=== PATIENT | male | born 2005 | race Caucasian/White ===

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

== ENCOUNTER 2025-09-29 09:58 | Outpatient (AMB) | payer SELFPAY ==
--- NOTE | 2025-09-29 10:07 | A.OFFPC_ITS ---
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) Intake Note: patient is scheduled to to establish care Economic Adviser Required: No Soap Drier Operator: Present Accompanied by: Life Partner Allergies No Known Allergies Allergy (Verified 09/29/25 10:13) Medication List - Last Reconciled 09/29/25 by Joshua Martin MD albuterol sulfate 90 mcg/actuation (Ventolin HFA) 2 puffs inhalation Q4-6H PRN Arnuity Ellipta 50 mcg/actuation (fluticasone furoate) 1 inh inhalation DAILY NS Tobacco use date assessed: 09/29/25 Dental Screening Dental Screen Date: 09/29/25 Did you have a dental visit in the last 12 months?: Yes Did you have a dental problem in the last 6 months where you did not have access to dental care?: No Was dental information given to patient?: No HPI 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 ?? Prior PCP:? Ariela Maldonado Last office visit/CPE:? > 1 yr Acute issue(s):? Asthma - Controlled ?? PMHx:? Asthma, Eczema, Nut Allergy SurgHx:? None FHx:? Dad: Allergies. Mom: Healthy. SocHx:? Nonsmoker. EtOH. 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 1. Little interest or pleasure in doing things: not at all 2. Feeling down, depressed, or hopeless: not at all 3. Trouble falling or staying asleep, or sleeping too much: not at all 4. Feeling tired or having little energy: not at all 5. Poor appetite or overeating: not at all 6. Feeling bad about yourself - or that you are a failure or have let yourself or your family down: not at all 7. Trouble concentrating on things, such as reading the newspaper or watching television: not at all 8. Moving or speaking so slowly that other people could have noticed. Or the opposite - being so fidgety or restless that you have been moving around a lot more than usual: not at all 9. Thoughts that you would be better off or of hurting yourself in some way: not at all Total score: 0 Depression Screening Interpretation: Negative Depression Screening Done: Yes 86233 - PHQ-9 Billing: Yes Source: Developed by Drs. Jameson Lew, Anyi Rodriguez, Inderjit Fung and colleagues, with an educational amos from [employer] Thrive Questionnaire Date Thrive assessed: 09/29/25 I am a: Parent/Caregiver What is your living situation today?: I have a steady place to live Within the past 12 months, did the food you bought not last and you didn't have the money to get more?: Never true Within the past 12 months, did you worry whether your food would run out before you got money to buy more?: Never true Do you have trouble paying for medicines?: No Do you have trouble getting transportation to medical appointments?: No Do you have trouble paying your heating and electricity bill?: No Do you have trouble taking care of your child, family member or friend?: No Do you have trouble with day-to-day activities such as bathing, preparing meals, shopping, managing finances, etc.?: No Are you currently unemployed and looking for a job?: No Are you interested in more education?: No Please select the resources that you would like help with: None Currently or been in a relationship where the following occur: No concerns reported THRIVE Score: 0 AUDIT C Alcohol Use Questionnaire (AUDIT-C) 1. How often do you have a drink containing alcohol?: Never 3. How often do you have six or more drinks on one occasion?: Never Total Score: 0 Score Reviewed/Action Taken: Yes DANITZA-7 AMB Questionnaire DANITZA-7 Date DANITZA - 7 assessed: 09/29/25 Feeling nervous, anxious, or on edge: 0 = Not at all Not being able to stop or control worryin = Not at all Worrying too much about different things: 0 = Not at all Trouble relaxin = Not at all Being so restless that it is hard to sit still: 0 = Not at all Becoming easily annoyed or irritable: 0 = Not at all Feeling afraid as if something awful might happen: 0 = Not at all Total DANITZA-7 score (0-4 normal; 5-9 mild; 10-14 moderate; 15-21 severe): 0 Source: Developed by Drs. Jameson Lew, Anyi Rodriguez, Inderjit Fung and colleagues, with an educational amos from [employer] DANITZA-7 Assessment Billing DANITZA-7 Assessment Tool: DANITZA-7 Assessment 06553 ACT Questionnaire In the past 4 weeks, how much of the time did your asthma keep you from getting as much done at work, school or at home?: None of the time During the past 4 weeks, how often have you had shortness of breath?: Not at all During the past 4 weeks, how often did your asthma symptoms wake you up at night or earlier than usual in the morning?: Not at all During the past 4 weeks, how often have you had to use your rescue inhaler or nebulizer medication?: Not at all How would you rate your asthma control during the past 4 weeks?: Completely controlled ACT Interpretation: Negative Score: 25 Review of Systems Const Denies chills, Denies fatigue, Denies fever(s), Denies headache(s) and Denies we akness ENT Denies dizziness and Denies headache(s) Card Denies chest pain, Denies lightheadedness, Denies dyspnea and Denies other (Palpitations) Resp Denies cough, Denies dyspnea, Denies wheezing and Denies other ( shortness of breath) Musc Denies numbness and Denies tingling Neuro Denies dizziness, Denies headache(s), Denies numbness, Denies tingling, Denies paresthesias and Denies weakness Psych Denies anxiety and Denies depression Endo Denies fatigue Aller/Immun Denies wheezing Physical exam (Primary Care) Vital Signs: Last Vital Signs Temp 98.2 F 09/29/25 10:17 Pulse 86 09/29/25 10:17 Resp 16 09/29/25 10:17 BP 100/78 09/29/25 10:17 Pulse Ox 97 09/29/25 10:17 Oxygen Delivery Method Room Air 09/29/25 10:17 BMI result Body Mass Index 24.6 Tobacco/Smoking Status: Tobacco use Status Tobacco use date assessed 09/29/25 09/29/25 10:21 Patient Tobacco Use Status Never used Tobacco 09/29/25 10:21 e-Cigarette/Vaping Use Never Used 09/29/25 10:21 PHQ-9: PHQ-9 Score PHQ-9: Total score 0 09/29/25 10:41 Depression Screening Interpretation: Negative Thrive Assessment: Date of Thrive Assessment Date Thrive assessed 09/29/25 09/29/25 10:21 Currently or been in a relationship where the following occur: No concerns reported Const General: no acute distress and well developed Nutritional Appearance: well nourished Orientation/consciousness: patient oriented x3 HENMT Head: Yes normocephalic and Yes atraumatic Eyes General: appearance normal, both eyes and all related structures Pupils: Equal, round and reactive pupils present EOM: EOMs intact bilaterally Resp Effort & Inspection: normal respiratory effort Auscultation: clear to auscultation bilaterally Cardio Rate: regular rate Rhythm: regular rhythm Heart sounds: S1 normal heart sound present, S2 normal heart sound present, no gallops, no murmurs and no rubs Skin Other: Eczema all over the anterior flexor surfaces Neuro General: patient oriented x3 and gait normal Cranial nerves: Yes Equal, round and reactive pupils present Psych Affect: normal affect Coding Level of Care Code New Pt Level 3 (16363) Diagnoses Mild intermittent asthma J45.20 Atopy Z88.9 Eczema L30.9 Laboratory exam ordered as part of routine general medical examination Z00.00 Additional Codes Asthma Control Questionnaire - ACT Interpretation: Negative ([id number]) DANITZA-7 Assessment Billing - DANITZA-7 Assessment Tool: DANITZA-7 Assessment 73320 ([id number]) PHQ-9 - 68744 - PHQ-9 Billing: Yes ([id number]) Assessment & Plan Assessment & Plan (1) Mild intermittent asthma: Code(s): J45.20 - Mild intermittent asthma, uncomplicated Category: Medical (2) Atopy: Code(s): Z88.9 - Allergy status to unspecified drugs, medicaments and biological substances Category: Medical (3) Eczema: Code(s): L30.9 - Dermatitis, unspecified Category: Medical (4) Laboratory exam ordered as part of routine general medical examination: Code(s): Z00.00 - Encounter for general adult medical examination without abnormal findings Category: Medical Plan: Check labs Plan 20-year-old male presents as new patient History of asthma and eczema; a copy Asthma managed by albuterol inhaler which he will continue. He can also trial second-generation antihistamine Keep skin well moisturized and hydrate well Use moisturizer with no dyes or perfumes Will give him a script for betamethasone to get better control of current symptoms Orders: Orders Comprehensive [place]. Panel Fast Today Z00.00 - Encounter for general adult medical examination without abnormal findings Lipid Panel Today Z00.00 - Encounter for general adult medical examination without abnormal findings UA CC w/rflx Micro + Cult Today Z00.00 - Encounter for general adult medical examination without abnormal findings Complete Blood Count Auto Diff Today Z00.00 - Encounter for general adult medical examination without abnormal findings Microalbumin, Random (w Creat) Today I10 - Essential (primary) hypertension TSH reflex Free T4 Today Z00.00 - Encounter for general adult medical examination without abnormal findings Medications: New betamethasone dipropionate 0.05% 1 appl topical BID PRN 45 grams 1RF skin irritation 14 days Refilled albuterol sulfate 90 mcg/actuation (Ventolin HFA) 2 puffs inhalation Q4-6H PRN 8.5 grams 0RF shortness of breath or wheezing Discontinued Arnuity Ellipta 50 mcg/actuation (fluticasone furoate) Discontinued Reason: Doctor's Order 1 inh inhalation DAILY 30 ea 1RF NS
[2025-09-29 10:17] VITALS: BP 100/78; PULSE 86; RESP 16; TEMP 36.8; O2SAT 97; BMI 24.6
== END 2025-09-29 11:04 | disposition home or self-care (01) ==
LOC: HO.HMCFM 09:59
PROVIDERS: PCP Family Medicine; Visit Provider Family Medicine
DX: J45.20 Mild intermittent asthma, uncomplicated (principal); Z88.9 Allergy status to unspecified drugs, medicaments and biological substances; L30.9 Dermatitis, unspecified; Z00.00 Encounter for general adult medical examination without abnormal findings

== ENCOUNTER → 2025-09-29 09:58 | Outpatient (BNVA) | payer SELFPAY | PROVIDERS: PCP Family Medicine; Visit Provider Family Medicine | DX: Z00.00 Encounter for general adult medical examination without abnormal findings (principal); J45.20 Mild intermittent asthma, uncomplicated; L30.9 Dermatitis, unspecified; Z88.9 Allergy status to unspecified drugs, medicaments and biological substances | CPT/HCPCS: 96127; 96160; 99202 ==